=== PATIENT | male | born 1990 | race Caucasian/White ===

== ENCOUNTER 2020-02-26 19:14 | Day surgery (SDC) | payer BC, OTHER ==
[2020-02-26] MEDS ORDERED: HYDROmorphone 1 MG/ML Syringe IM ONE ×2 (19:58→20:35)
[2020-02-26] MEDS ORDERED: Glucagon,Human Recombinant 1 MG Vial IM ONE ×3 (19:58→22:19)
[2020-02-26] MEDS ORDERED: Metoclopramide 10 MG/2 ML SDV IM ONE ×2 (19:58→20:35)
[2020-02-26] MEDS ORDERED: methylPREDNISolone Sodium Succinate 125 MG/2 ML SDV IVPUSH ONE (22:27)
[2020-02-26] MEDS ORDERED: Ketorolac 15 MG/ML SDV IVPUSH ONE (22:27)
[2020-02-26] MEDS ORDERED: Albuterol/Ipratropium 3.0-0.5 MG/3 ML Neb Soln NEB ONE (22:27)
[2020-02-26] MEDS ORDERED: Sodium Chloride 0.9% 2.5 ML Syringe FLUSH PRN (22:27)
[2020-02-26] MEDS ORDERED: Sodium Chloride 0.9% 1,000 ML IV ONE (22:27)
[2020-02-26] MEDS ORDERED: Sodium Chloride 0.9% 10 ML Syringe FLUSH PRN (22:27)
[2020-02-26 22:47] LABS: BLOOD UREA NITROGEN,BUN 19 mg/dL (7.0-18.0); CARBON DIOXIDE,CO2 27.4 mmol/L (21.0-32.0); CHLORIDE,CL 102 mmol/L (98-107); GLUCOSE RANDOM 144 mg/dL (74-106); POTASSIUM,K 3.7 mmol/L (3.5-5.1); SODIUM,NA 139 mmol/L (136-148)
--- NOTE | 2020-02-26 22:56 | EDM.PDOC ---
ED HPI GENERAL MEDICAL PROBLEM - General Chief Complaint: ENT Problem Stated Complaint: THROAT PROBLEM Time Seen by Provider: 02/26/20 19:51 - History of Present Illness INITIAL COMMENTS - FREE TEXT/NARRATIVE: HISTORY AND PHYSICAL: History of present illness: This a healthy 29-year-old gentleman who presents ER today secondary to impaction of food in his esophagus that occurred shortly prior to arrival today. Patient ports that he was eating chicken and swallowed and felt that he got stuck in his esophagus. Patient reports he has been unable to tolerate secretions or liquids since. Patient reports that he had multiple episodes similar to this in the past. He reports he actually has a proxy 1 episode per month however he has never had to come to the emergency department or seek medical attention for it. Patient reports usually within a minute or so the food bolus descends on its own. He reports is the first time that he has not been able to get the past down on his own. Patient denies any recent fevers, shakes, chills, URI symptoms. Aside from the bolus he does denies any nausea, vomiting, diarrhea, chest pain, shortness of breath, abdominal pain. Patient reports that he feels a discomfort in his midsternal region where he feels like the food bolus is. Patient denies any history of hypertension, diabetes, liver, lung, kidney problems Patient has any abdominal or chest surgeries. Patient denies any tobacco alcohol or drugs. Patient has no known drug allergies. Review of systems: As per history of present illness and below otherwise all systems reviewed and negative. Past medical history: As per history of present illness and as reviewed below otherwise noncontributory. Surgical history: As per history of present illness and as reviewed below otherwise noncontributory. Social history: No reported history of drug or alcohol abuse. Family history: As per history of present illness and as reviewed below otherwise noncontributory. Physical exam: Constitutional: Patient is oriented to person, place, and time. Appears well- developed and well-nourished. No distress. HEENT: Moist mucous membranes Head: Normocephalic and atraumatic Eyes: Right eye exhibits no discharge. Left eye exhibits no discharge. No scleral icterus Neck: Normal range of motion. No tracheal deviation present. Cardiovascular: Normal rate and regular rhythm. Pulmonary: Effort normal, no respiratory distress. Abdominal: No distention Musculoskeletal: Normal range of motion Neurologic: Alert and oriented to person, place and time. Skin: [place], warm and dry. Psychiatric: Normal mood and affect. Behavior is normal. Judgment and thought content normal. Nursing note and vital signs have been reviewed Patient's ER physical exam is significant for a well-developed well-nourished gentleman w is sitting in his chair and appears to be somewhat apprehensive. Patient is unable to tolerate saliva or fluids in the ED and regurgitates up fluid. Patient did have 1 or 2 episodes of small amount of chicken regurgitated however he is still not able to tolerate liquids. This patient was seen and evaluated during the 2019 SARS-CoV-2 novel coronavirus pandemic period. Community viral transmission is ongoing at time of this encounter and the emergency department is operating under pandemic response procedures. Chest Xray: Normal cardiac silhouette No infiltrates or effusions identified. No PTX No evidence of acute bony fracture. As interpreted by ER MD: Chente Assessment and plan: This is a 29-year-old gentleman who presents ER today with a food impaction of esophagus that is not resolved despite giving glucagon 1 mg IM x2, Reglan IM, Dilaudid IM. I have discussed the case with Dr. Layton who is currently at bedside to assist us with removal of this food bolus. Patient is otherwise clinically hemodynamically stable. February 27, 2020 7:45 PM: Follow-up phone call performed for continuity of care. Patient reports he feels improved after the EGD. Patient is tolerating liquids well without any difficulty. Patient reports a mild discomfort in the throat but other than that he feels well. Definitive disposition and diagnosis as appropriate pending reevaluation and review of above. Throat Pain Score (Numeric/FACES): 7 - Related Data Allergies Allergy/AdvReac Type Severity Reaction Status Date / Time No Known Allergies Allergy Verified 03/04/14 13:31 Home Meds: Home Meds . [No Known Home Meds] 02/26/20 [History] Past Medical History - Past Health History Medical/Surgical History: Denies Medical/Surgical History Social & Family History - Tobacco Use Tobacco Use Status *Q: Never Tobacco User - Recreational Drug Use Recreational Drug Use: No ED ROS GENERAL - Review of Systems Review Of Systems: See Below ED EXAM, GENERAL - Physical Exam Exam: See Below Course - Vital Signs Last Recorded V/S: Last Vital Signs Temp 99 F 02/27/20 11:03 Pulse 81 02/27/20 11:03 Resp 18 02/27/20 11:03 BP 144/58 H 02/27/20 11:03 Pulse Ox 92 L 02/27/20 11:03 - Orders/Labs/Meds Orders: Active Orders 24 hr Category Date Time Status Admission Status [Patient Status] [ADT] Routine ADT 02/27/20 01:22 Active Admission Status [Patient Status] [ADT] Stat ADT 02/27/20 00:00 Active Patient Status [ADT] Routine ADT 02/26/20 23:00 Active Saline Lock Insert [OM.PC] Stat Oth 02/26/20 22:27 Ordered Labs: Laboratory Tests 02/26/20 02/26/20 02/26/20 Range/Units 21:17 21:30 21:30 WBC 10.25 (4.0-11.0) K/uL RBC 5.24 (4.50-5.90) M/uL Hgb 15.2 (13.0-17.0) g/dL Hct 45.7 (38.0-50.0) % MCV 87.2 (80.0-98.0) fL MCH 29.0 (27.0-32.0) pg MCHC 33.3 (31.0-37.0) g/dL RDW Std Deviation 42.1 (28.0-62.0) fl RDW Coeff of Peyton 13 (11.0-15.0) % Plt Count 221 (150-400) K/uL MPV 9.70 (7.40-12.00) fL Neut % (Auto) 75.7 (48.0-80.0) % Lymph % (Auto) 16.3 (16.0-40.0) % [place] % (Auto) 5.9 (0.0-15.0) % Eos % (Auto) 1.9 (0.0-7.0) % Baso % (Auto) 0.2 (0.0-1.5) % Neut # (Auto) 7.8 H (1.4-5.7) K/uL Lymph # (Auto) 1.7 (0.6-2.4) K/uL [place] # (Auto) 0.6 (0.0-0.8) K/uL Eos # (Auto) 0.2 (0.0-0.7) K/uL Baso # (Auto) 0.0 (0.0-0.1) K/uL Nucleated RBC % 0.0 /100WBC Nucleated RBCs # 0 K/uL D-Dimer, Quantitative 0.27 (0.0-0.50) mg/L FEU Sodium (136-148) mmol/L Potassium (3.5-5.1) mmol/L Chloride (98-107) mmol/L Carbon Dioxide (21.0-32.0) mmol/L BUN (7.0-18.0) mg/dL Creatinine (0.8-1.3) mg/dL Est Cr Clr Drug Dosing mL/min Estimated GFR (MDRD) ml/min Glucose (74-106) mg/dL Calcium (8.5-10.1) mg/dL Total Bilirubin (0.2-1.0) mg/dL AST (15-37) IU/L ALT (14-63) IU/L Alkaline Phosphatase (46-116) U/L Troponin I (0.000-0.056) ng/mL Total Protein (6.4-8.2) g/dL Albumin (3.4-5.0) g/dL Globulin (2.6-4.0) g/dL Albumin/Globulin Ratio (0.9-1.6) SARS-CoV-2 RNA (MARY) NEGATIVE (NEGATIVE) 02/26/20 Range/Units 21:30 WBC (4.0-11.0) K/uL RBC (4.50-5.90) M/uL Hgb (13.0-17.0) g/dL Hct (38.0-50.0) % MCV (80.0-98.0) fL MCH (27.0-32.0) pg MCHC (31.0-37.0) g/dL RDW Std Deviation (28.0-62.0) fl RDW Coeff of Peyton (11.0-15.0) % Plt Count (150-400) K/uL MPV (7.40-12.00) fL Neut % (Auto) (48.0-80.0) % Lymph % (Auto) (16.0-40.0) % [place] % (Auto) (0.0-15.0) % Eos % (Auto) (0.0-7.0) % Baso % (Auto) (0.0-1.5) % Neut # (Auto) (1.4-5.7) K/uL Lymph # (Auto) (0.6-2.4) K/uL [place] # (Auto) (0.0-0.8) K/uL Eos # (Auto) (0.0-0.7) K/uL Baso # (Auto) (0.0-0.1) K/uL Nucleated RBC % /100WBC Nucleated RBCs # K/uL D-Dimer, Quantitative (0.0-0.50) mg/L FEU Sodium 139 (136-148) mmol/L Potassium 3.7 (3.5-5.1) mmol/L Chloride 102 (98-107) mmol/L Carbon Dioxide 27.4 (21.0-32.0) mmol/L BUN 19 H (7.0-18.0) mg/dL Creatinine 1.3 (0.8-1.3) mg/dL Est Cr Clr Drug Dosing 93.90 mL/min Estimated GFR (MDRD) > 60.0 ml/min Glucose 144 H (74-106) mg/dL Calcium 9.0 (8.5-10.1) mg/dL Total Bilirubin 0.5 (0.2-1.0) mg/dL AST 30 (15-37) IU/L ALT 18 (14-63) IU/L Alkaline Phosphatase 71 (46-116) U/L Troponin I < 0.050 (0.000-0.056) ng/mL Total Protein 7.6 (6.4-8.2) g/dL Albumin 4.3 (3.4-5.0) g/dL Globulin 3.3 (2.6-4.0) g/dL Albumin/Globulin Ratio 1.3 (0.9-1.6) SARS-CoV-2 RNA (MARY) (NEGATIVE) Meds: Medications Discontinued Medications Generic Name Dose Route Start Last Admin Trade Name Freq PRN Reason Stop Dose Admin Albuterol/Ipratropium 3 ml 02/26/20 22:27 02/26/20 23:11 Duoneb 3.0-0.5 Mg/3 Ml NEB 02/26/20 22:28 Not Given ONETIME ONE Fentanyl Confirm 02/26/20 23:24 Sublimaze Administered 02/26/20 23:25 Dose 100 mcg .ROUTE .STK-MED ONE Glucagon 1 mg 02/26/20 19:58 02/26/20 20:47 Glucagen IM 02/26/20 19:59 Not Given ONETIME ONE Glucagon 1 mg 02/26/20 20:35 02/26/20 20:41 Glucagen IM 02/26/20 20:36 1 mg ONETIME ONE Administration Glucagon 1 mg 02/26/20 22:19 02/26/20 22:32 Glucagen IM 02/26/20 22:20 1 mg ONETIME ONE Administration Glycopyrrolate Confirm 02/26/20 23:25 Robinul Administered 02/26/20 23:26 Dose 0.2 mg .ROUTE .STK-MED ONE Hydromorphone HCl 0.5 mg 02/26/20 19:58 02/26/20 20:47 Dilaudid IM 02/26/20 19:59 Not Given ONETIME ONE Hydromorphone HCl 0.5 mg 02/26/20 20:35 02/26/20 20:42 Dilaudid IM 02/26/20 20:36 0.5 mg ONETIME ONE Administration Sodium Chloride 1,000 mls @ 999 mls/hr 02/26/20 22:27 02/26/20 22:58 Normal Saline IV 02/26/20 23:27 999 mls/hr .Bolus ONE Administration Lactated Ringer's 1,000 mls @ 125 mls/hr 02/26/20 23:15 02/27/20 02:37 Ringers, Lactated IV 125 mls/hr ASDIRECTED EMELY Administration Pantoprazole Sodium 40 mg/ 10 mls @ 300 mls/hr 02/27/20 09:00 02/27/20 09:38 Sodium Chloride IV 300 mls/hr DAILY EMELY Administration Ketorolac Tromethamine 15 mg 02/26/20 22:27 02/26/20 23:11 Toradol IVPUSH 02/26/20 22:28 Not Given ONETIME ONE Lidocaine Confirm 02/26/20 23:25 Xylocaine-Mpf 2% Administered 02/26/20 23:26 Dose 5 ml .ROUTE .STK-MED ONE Methylprednisolone Sodium Succinate 125 mg 02/26/20 22:27 02/26/20 23:11 Solu-Medrol IVPUSH 02/26/20 22:28 Not Given ONETIME ONE Metoclopramide HCl 10 mg 02/26/20 19:58 02/26/20 20:47 Reglan IM 02/26/20 19:59 Not Given ONETIME ONE Metoclopramide HCl 10 mg 02/26/20 20:35 02/26/20 20:41 Reglan IM 02/26/20 20:36 10 mg ONETIME ONE Administration Midazolam HCl Confirm 02/26/20 23:24 Versed 1 Mg/Ml Administered 02/26/20 23:25 Dose 2 mg .ROUTE .STK-MED ONE Morphine Sulfate 2 mg 02/27/20 01:24 02/27/20 02:37 Morphine IV 2 mg Q6H PRN Administration Pain Ondansetron HCl Confirm 02/26/20 23:25 Zofran Administered 02/26/20 23:26 Dose 4 mg .ROUTE .STK-MED ONE Ondansetron HCl 4 mg 02/27/20 01:26 Zofran IVPUSH Q8H PRN Nausea/Vomiting Oxycodone/Acetaminophen 1 tab 02/27/20 01:24 02/27/20 10:02 Percocet 325-5 Mg PO 1 tab Q6H PRN Administration Pain Propofol Confirm 02/26/20 23:24 Diprivan 20 Ml Administered 02/26/20 23:25 Dose 200 mg .ROUTE .STK-MED ONE Sodium Chloride 10 ml 02/26/20 22:27 02/26/20 22:58 Saline Flush FLUSH 10 ml ASDIRECTED PRN Administration Keep Vein Open Sodium Chloride 2.5 ml 02/26/20 22:27 02/26/20 22:58 Saline Flush FLUSH 2.5 ml ASDIRECTED PRN Administration Keep Vein Open Departure - Departure Time of Disposition: 22:56 Disposition: Refer to Observation Clinical Impression: Esophageal obstruction due to food impaction - Discharge Information Sepsis Event Note (ED) - Evaluation Sepsis Screening Result: No Definite Risk - Focused Exam Vital Signs: Vital Signs Temp Pulse Resp BP Pulse Ox 02/27/20 11:03 99 F 81 18 144/58 H 92 L 02/27/20 10:01 129/55 L 93 L 02/27/20 08:00 98.1 F 83 17 113/58 L 93 L - My Orders Last 24 Hours: My Active Orders 02/26/20 22:27 Saline Lock Insert [OM.PC] Stat 02/26/20 23:00 Patient Status [ADT] Routine 02/27/20 00:00 Admission Status [Patient Status] [ADT] Stat - Assessment/Plan Last 24 Hours: My Active Orders 02/26/20 22:27 Saline Lock Insert [OM.PC] Stat 02/26/20 23:00 Patient Status [ADT] Routine 02/27/20 00:00 Admission Status [Patient Status] [ADT] Stat
[2020-02-26] MEDS ORDERED: Lactated Ringers 1,000 ML IV SCH (23:15)
--- NOTE | 2020-02-26 23:16 | PCM.SN.2 ---
- Free Text/Narrative Note: pt seen, chart reviewed; food stucked; to or for egd w fb extraction; rb dw pt re bleeding/infection/perforation; pt concur and proceed; [id number]
--- NOTE | 2020-02-26 23:17 | CR ---
INDICATION: Shortness of breath TECHNIQUE: Chest radiograph 1 view COMPARISON: None FINDINGS: Mediastinum: The mediastinum is normal in appearance. The heart silhouette is normal in size and morphology. Lung: Both lungs are unremarkable in appearance. No sign of pleural effusion seen. No pneumothorax is identified. Bone and Soft tissue: Unremarkable for age. IMPRESSION: 1. No acute cardiopulmonary disease is seen. Dictated by: Nolan Menendez MD @ 02/26/2020 23:14:43 (Electronically Signed)
[2020-02-26] MEDS ORDERED: Midazolam 1 MG/ML 2 ML SDV ONE (23:24)
[2020-02-26] MEDS ORDERED: Propofol 200 MG/20 ML SDV ONE (23:24)
[2020-02-26] MEDS ORDERED: fentaNYL 100 MCG/2 ML SDV ONE (23:24)
[2020-02-26] MEDS ORDERED: Ondansetron 4 MG/2 ML SDV ONE (23:25)
[2020-02-26] MEDS ORDERED: Succinylcholine/Sod PF 100 MG/5 ML SYRINGE IV ONE (23:25)
[2020-02-26] MEDS ORDERED: Glycopyrrolate 0.2 MG/ML SDV ONE (23:25)
[2020-02-26] MEDS ORDERED: Lidocaine 2% 5 ML SDV ONE (23:25)
--- NOTE | 2020-02-26 23:32 | PCM.PREANE ---
Preanesthetic Assessment - Anesthesia/Transfusion/Family Hx Anesthesia History: No Prior Anesthesia Family History of Anesthesia Reaction: No - Review of Systems General: No Symptoms Pulmonary: No Symptoms Cardiovascular: No Symptoms Gastrointestinal: Abdominal Pain Neurological: No Symptoms Other: Reports: None - Physical Assessment NPO Status Date: 02/26/20 NPO Status Time: 18:00 Vital Signs: Last Vital Signs Temp 36.2 C 02/26/20 19:24 Pulse 68 02/26/20 23:00 Resp 17 02/26/20 23:00 BP 127/69 02/26/20 23:00 Pulse Ox 96 02/26/20 23:00 Height: 1.85 m Weight: 108.862 kg ASA Class: 1E Thyro-Mental Finger Breadths: 3 Mouth Opening Finger Breadths: 3 - Lab Values: Laboratory Last Values WBC 10.25 K/uL (4.0-11.0) 02/26/20 21:30 RBC 5.24 M/uL (4.50-5.90) 02/26/20 21:30 Hgb 15.2 g/dL (13.0-17.0) 02/26/20 21:30 Hct 45.7 % (38.0-50.0) 02/26/20 21:30 MCV 87.2 fL (80.0-98.0) 02/26/20 21:30 MCH 29.0 pg (27.0-32.0) 02/26/20 21:30 MCHC 33.3 g/dL (31.0-37.0) 02/26/20 21:30 RDW Std Deviation 42.1 fl (28.0-62.0) 02/26/20 21:30 RDW Coeff of Peyton 13 % (11.0-15.0) 02/26/20 21:30 Plt Count 221 K/uL (150-400) 02/26/20 21:30 MPV 9.70 fL (7.40-12.00) 02/26/20 21:30 Neut % (Auto) 75.7 % (48.0-80.0) 02/26/20 21:30 Lymph % (Auto) 16.3 % (16.0-40.0) 02/26/20 21:30 [place] % (Auto) 5.9 % (0.0-15.0) 02/26/20 21:30 Eos % (Auto) 1.9 % (0.0-7.0) 02/26/20 21:30 Baso % (Auto) 0.2 % (0.0-1.5) 02/26/20 21:30 Neut # (Auto) 7.8 K/uL (1.4-5.7) H 02/26/20 21:30 Lymph # (Auto) 1.7 K/uL (0.6-2.4) 02/26/20 21:30 [place] # (Auto) 0.6 K/uL (0.0-0.8) 02/26/20 21:30 Eos # (Auto) 0.2 K/uL (0.0-0.7) 02/26/20 21:30 Baso # (Auto) 0.0 K/uL (0.0-0.1) 02/26/20 21:30 Nucleated RBC % 0.0 /100WBC 02/26/20 21: Nucleated RBCs # 0 K/uL 02/26/20 21:30 D-Dimer, Quantitative 0.27 mg/L FEU (0.0-0.50) 02/26/20 21:30 Sodium 139 mmol/L (136-148) 02/26/20 21:30 Potassium 3.7 mmol/L (3.5-5.1) 02/26/20 21:30 Chloride 102 mmol/L (98-107) 02/26/20 21:30 Carbon Dioxide 27.4 mmol/L (21.0-32.0) 02/26/20 21:30 BUN 19 mg/dL (7.0-18.0) H 02/26/20 21:30 Creatinine 1.3 mg/dL (0.8-1.3) 02/26/20 21:30 Est Cr Clr Drug Dosing 93.90 mL/min 02/26/20 21:30 Estimated GFR (MDRD) > 60.0 ml/min 02/26/20 21:30 Glucose 144 mg/dL (74-106) H 02/26/20 21:30 Calcium 9.0 mg/dL (8.5-10.1) 02/26/20 21:30 Total Bilirubin 0.5 mg/dL (0.2-1.0) 02/26/20 21:30 AST 30 IU/L (15-37) 02/26/20 21:30 ALT 18 IU/L (14-63) 02/26/20 21:30 Alkaline Phosphatase 71 U/L (46-116) 02/26/20 21:30 Troponin I < 0.050 ng/mL (0.000-0.056) 02/26/20 21:30 Total Protein 7.6 g/dL (6.4-8.2) 02/26/20 21:30 Albumin 4.3 g/dL (3.4-5.0) 02/26/20 21:30 Globulin 3.3 g/dL (2.6-4.0) 02/26/20 21:30 Albumin/Globulin Ratio 1.3 (0.9-1.6) 02/26/20 21:30 SARS-CoV-2 RNA (MARY) NEGATIVE (NEGATIVE) 02/26/20 21:17 - Allergies Allergies/Adverse Reactions: Allergies Allergy/AdvReac Type Severity Reaction Status Date / Time No Known Allergies Allergy Verified 03/04/14 13:31 - Acknowledgements Anesthesia Type Planned: General Anesthesia Pt an Appropriate Candidate for the Planned Anesthesia: Yes Alternatives and Risks of Anesthesia Discussed w Pt/Guardian: Yes Pt/Guardian Understands and Agrees with Anesthesia Plan: Yes PreAnesthesia Questionnaire - Past Health History Medical/Surgical History: Denies Medical/Surgical History - SUBSTANCE USE Tobacco Use Status *Q: Never Tobacco User Recreational Drug Use History: No - HOME MEDS Home Medications: Home Meds . [No Known Home Meds] 02/26/20 [History] - CURRENT (IN HOUSE) MEDS Current Meds: Current Medications Lactated Ringer's (Ringers, Lactated) 1,000 mls @ 125 mls/hr IV ASDIRECTED EMELY Sodium Chloride (Saline Flush) 10 ml FLUSH ASDIRECTED PRN PRN Reason: Keep Vein Open Last Admin: 02/26/20 22:58 Dose: 10 ml Documented by: Sodium Chloride (Saline Flush) 2.5 ml FLUSH ASDIRECTED PRN PRN Reason: Keep Vein Open Last Admin: 02/26/20 22:58 Dose: 2.5 ml Documented by: Discontinued Medications Albuterol/Ipratropium (Duoneb 3.0-0.5 Mg/3 Ml) 3 ml NEB ONETIME ONE Stop: 02/26/20 22:28 Last Admin: 02/26/20 23:11 Dose: Not Given Documented by: Fentanyl (Sublimaze) Confirm Administered Dose 100 mcg .ROUTE .STK-MED ONE Stop: 02/26/20 23:25 Glucagon (Glucagen) 1 mg IM ONETIME ONE Stop: 02/26/20 19:59 Last Admin: 02/26/20 20:47 Dose: Not Given Documented by: Glucagon (Glucagen) 1 mg IM ONETIME ONE Stop: 02/26/20 20:36 Last Admin: 02/26/20 20:41 Dose: 1 mg Documented by: Glucagon (Glucagen) 1 mg IM ONETIME ONE Stop: 02/26/20 22:20 Last Admin: 02/26/20 22:32 Dose: 1 mg Documented by: Glycopyrrolate (Robinul) Confirm Administered Dose 0.2 mg .ROUTE .STK-MED ONE Stop: 02/26/20 23:26 Hydromorphone HCl (Dilaudid) 0.5 mg IM ONETIME ONE Stop: 02/26/20 19:59 Last Admin: 02/26/20 20:47 Dose: Not Given Documented by: Hydromorphone HCl (Dilaudid) 0.5 mg IM ONETIME ONE Stop: 02/26/20 20:36 Last Admin: 02/26/20 20:42 Dose: 0.5 mg Documented by: Sodium Chloride (Normal Saline) 1,000 mls @ 999 mls/hr IV .Bolus ONE Stop: 02/26/20 23:27 Last Admin: 02/26/20 22:58 Dose: 999 mls/hr Documented by: Ketorolac Tromethamine (Toradol) 15 mg IVPUSH ONETIME ONE Stop: 02/26/20 22:28 Last Admin: 02/26/20 23:11 Dose: Not Given Documented by: Lidocaine (Xylocaine-Mpf 2%) Confirm Administered Dose 5 ml .ROUTE .STK-MED ONE Stop: 02/26/20 23:26 Methylprednisolone Sodium Succinate (Solu-Medrol) 125 mg IVPUSH ONETIME ONE Stop: 02/26/20 22:28 Last Admin: 02/26/20 23:11 Dose: Not Given Documented by: Metoclopramide HCl (Reglan) 10 mg IM ONETIME ONE Stop: 02/26/20 19:59 Last Admin: 02/26/20 20:47 Dose: Not Given Documented by: Metoclopramide HCl (Reglan) 10 mg IM ONETIME ONE Stop: 02/26/20 20:36 Last Admin: 02/26/20 20:41 Dose: 10 mg Documented by: Midazolam HCl (Versed 1 Mg/Ml) Confirm Administered Dose 2 mg .ROUTE .STK-MED ONE Stop: 02/26/20 23:25 Ondansetron HCl (Zofran) Confirm Administered Dose 4 mg .ROUTE .STK-MED ONE Stop: 02/26/20 23:26 Propofol (Diprivan 20 Ml) Confirm Administered Dose 200 mg .ROUTE .STK-MED ONE Stop: 02/26/20 23:25
--- NOTE | 2020-02-27 01:21 | PCM.OPNOTE ---
- General Post-Op/Procedure Note Date of Surgery/Procedure: 02/27/20 Operative Procedure(s): egd w foreign body extraction Findings: a very large piece of meat completely stucked at the ge junction, cannot be push in; took out pieces by pieces over 20 times; [id number] Pre Op Diagnosis: food stuck Post-Op Diagnosis: Same Anesthesia Technique: General ET Tube Complications: None Condition: Stable
[2020-02-27] MEDS ORDERED: Acetaminophen/oxyCODONE 325-5 MG Tab PO PRN (01:24)
[2020-02-27] MEDS ORDERED: Morphine 2 MG/ML SYRINGE IV PRN (01:24)
[2020-02-27] MEDS ORDERED: Ondansetron 4 MG/2 ML SDV IVPUSH PRN (01:26)
[2020-02-27] MEDS ORDERED: Lactated Ringers 1,000 ML IV SCH (01:30)
--- NOTE | 2020-02-27 01:37 | PCM.SN.2 ---
- Free Text/Narrative Note: Keep overnight for sds, if doing well in morning, pain in good control, tolerate liquid diet, void; pt can go home. pt needs to be picked up to go home.
--- NOTE | 2020-02-27 01:51 | PCM.POSTAN ---
POST ANESTHESIA ASSESSMENT - MENTAL STATUS Mental Status: Alert - VITAL SIGNS Vital Signs: Last Vital Signs Temp 36.4 C 02/27/20 01:37 Pulse 87 02/27/20 01:47 Resp 13 02/27/20 01:47 BP 120/78 02/27/20 01:47 Pulse Ox 98 02/27/20 01:47 - RESPIRATORY Respiratory Status: Respiratory Rate WNL - CARDIOVASCULAR CV Status: Pulse Rate WNL - GASTROINTESTINAL GI Status: No Symptoms - POST OP HYDRATION Hydration Status: Adequate & Stable
--- NOTE | 2020-02-27 03:15 | CONS ---
DATE OF CONSULTATION: 02/26/2020 DATE OF : 1990 PRIMARY CARE PHYSICIAN: None PCP Consult from ER doctor provider, Dr. Eldridge. CONSULTING QUESTION: Food stuck. HISTORY OF PRESENT ILLNESS: The patient is a 29-year-old young gentleman, otherwise healthy. Has multiple history of food stuck at least 2 times in the past 12 months. Usually gets out with drugs, vaping, and drinking water. At this time, it did not work. Went to the emergency room and got IV glucagon 2 times. Surgery was then consulted. Currently, the patient denying chest pain, denying shortness of breath. Still cannot drink water. ALLERGIES: Please refer to Nursing for details. MEDICATIONS: Please refer to Nursing for details. PAST MEDICAL HISTORY: Significant for no diabetes, MS, CVA, hypertension. PAST SURGICAL HISTORY: No abdominal surgeries. FAMILY HISTORY: Noncontributory. No malignant hyperthermia history. PHYSICAL EXAMINATION: GENERAL: anxious young gentleman in no acute distress. HEENT: Normocephalic, atraumatic. Sclerae anicteric. LUNGS: Clear to auscultation. HEART: Regular rate and rhythm. ABDOMEN: Soft, nondistended. No pulsating tender midline abdominal structure. No surgical scar. IMPRESSION: Food stuck. Would benefit from esophagogastroduodenoscopy with possible foreign body extraction. Risks and benefits discussed with the patient including, but not limited to, infection, sore throat, and perforation. The patient concurred to proceed as planned. As always, thank you for the kind referral. AUGUSTO / JAYLA /[id number] FAIZA
--- NOTE | 2020-02-27 05:29 | OR ---
SURGEON: Bladimir Delong MD DATE OF PROCEDURE: 02/27/2020 PREOPERATIVE DIAGNOSIS: Food stuck. POSTOPERATIVE DIAGNOSIS: Food stuck. PROCEDURE PERFORMED: Esophagogastroduodenoscopy with foreign body extraction. PRIMARY SURGEON: Bladimir Delong MD COMPLICATIONS: None. FINDINGS: A very large piece of meat completely stuck at the GE junction at 40 and cannot be pushed in and had to be taken out piece by piece over 20 times. DESCRIPTION OF PROCEDURE: The patient was taking to operating room and placed in the supine position. Upon induction of general endotracheal anesthesia, EGD was then started. A well- lubricated Olympus EGD scope was gently inserted through the oropharynx down to the esophagus. Did not see any inflammation, stricture, varicosity, or infection, none of those. At the end, very distally, around 38 or 36, there is a large piece of meat completely stuck there. Water pile up and accumulating in the esophagus suggests food stucked. Trying to push in failed and resorted to take out piece by piece using basket, using 3-point retractor, using biopsy forceps, and over 20 times. The piece of meat was pretty digest and was not able to take it out by 1 piece and just take out piece by piece. Finally, came to the stomach and there is a lot of undigested food over there. The GE junction is very inflamed. The stomach rugae are normal in appearance and did not try to do too much. suck all the water and scope withdrawal. The patient tolerated procedure well. There were no intraop complications and Dr. Delong was present throughout the whole procedure. The patient probably will need EGD to take a look maybe in the future just to see whether the GE junction is especially narrow or some other pathology. Today, can see nothing because the GE junction is so swollen and edematous. The patient will be kept overnight and observation and should be on liquid diet for at least 3 to 5 days. No solid food because of the edema and should be also taking PPI too. As always, thank you for your kind referral. AUGUSTO / JAYLA /[id number] FAIZA
[2020-02-27] MEDS ORDERED: Pantoprazole 40 MG in Sodium Chloride 0.9% 10 ML IV SCH (09:00)
--- NOTE | 2020-02-27 09:32 | PCM48HPAN ---
Post Anesthesia Note - EVALUATION WITHIN 48HRS OF ANESTHETIC Vital Signs in Normal Range: Yes Patient Participated in Evaluation: Yes Respiratory Function Stable: Yes Airway Patent: Yes Cardiovascular Function Stable: Yes Hydration Status Stable: Yes Pain Control Satisfactory: Yes Nausea and Vomiting Control Satisfactory: Yes Mental Status Recovered: Yes Vital Signs: Last Vital Signs Temp 36.7 C 02/27/20 08:00 Pulse 83 02/27/20 08:00 Resp 17 02/27/20 08:00 BP 113/58 L 02/27/20 08:00 Pulse Ox 93 L 02/27/20 08:00
== END 2020-02-27 12:07 | disposition home or self-care (01) ==
LOC: MW.ED 19:14 → MW.SDS 02-27 → MW.MS 02-27 02:18 → MW.SDS 02-27 12:07
PROVIDERS: ATTEND Surgery
DX: T18.128A Food in esophagus causing other injury, initial encounter (principal); Z01.812 Encounter for preprocedural laboratory examination; Z20.822 Contact with and (suspected) exposure to COVID-19
CPT/HCPCS: 36415; 43247; 71045; 80053; 84484; 85025; 85379; 87635; 96372; 99284; A9270; C9113; J0330; J1170; J1610; J2001; J2250; J2270; J2704; J2765; J3010; J3490; J7030; J7120; 00731; 99283; J2405; U0002